=== PATIENT | female | born 1955 | race Caucasian/White ===

== ENCOUNTER 2019-03-18 14:22 | Emergency (ER) | payer MEDICARE, BC, SELFPAY ==
[2019-03-18 15:01] VITALS: BP 143/84; PULSE 60; RESP 17; TEMP 36.3; O2SAT 97; BMI 21.6
--- NOTE | 2019-03-18 15:05 | DI.RAD.S_ITS ---
PROCEDURE: XR WRIST RT MIN 3V INDICATIONS: Fall, R wrist pain TECHNIQUE: 3 views of the wrist were acquired. COMPARISON: [facility], CR, XR HAND RT MIN 3V, 03/18/2019, 15:28. FINDINGS: Bones: No acute fractures or dislocations. Chronic deformity of the distal ulna can be seen. The ulnar variance can be seen. There is a chronic appearing cystic lesion seen along the proximal triquetrum. No suspicious bony lesions. Degenerative changes are seen throughout, which are most prominent involving the radial aspect of the corpus callosum particularly involving the 1st carpometacarpal joint. Scaphoid view: Not done. Soft tissues: No suspicious soft tissue calcifications. IMPRESSION: No acute fractures are seen. No scaphoid view was done. If this patient has scaphoid tenderness, please send the patient back to radiology for a dedicated scaphoid view, which can be done at no additional charge. Chronic deformity of the distal ulna, with negative ulnar variance. There is a remote appearing cystic lesion involving the proximal triquetrum, which may related to the negative ulnar variance. Degenerative changes are seen throughout, which are most prominent involving radial aspect of the carpus. Dictated by: Flo De Luna M.D. on 03/18/2019 at 16:16 Approved by: Flo De Luna M.D. on 03/18/2019 at 16:19
--- NOTE | 2019-03-18 15:05 | DI.RAD.S_ITS ---
PROCEDURE: XR HAND RT MIN 3V INDICATIONS: Fall, R wrist pain TECHNIQUE: 3 views of the hand(s) acquired. COMPARISON: [facility], CR, XR WRIST RT MIN 3V, 03/18/2019, 15:31. FINDINGS: Bones: No acute fractures or dislocations. Chronic deformity is seen of the distal ulna. Note is made of negative ulnar variance. This can predispose to development of AVN of the lunate. However, no findings of AVN of the lunate are seen on these plain films. Carpal bones are normally aligned. No suspicious bony lesions. Degenerative changes are seen throughout, which are most prominent involving radial aspect of the carpus. Soft tissues: No suspicious soft tissue calcifications. IMPRESSION: No acute fractures are seen. Chronic deformity of the distal ulna noted, with negative ulnar variance. Degenerative changes are seen throughout, which are most prominent involving the radial aspect of the carpus. Dictated by: Flo De Luna M.D. on 03/18/2019 at 16:14 Approved by: Flo De Luna M.D. on 03/18/2019 at 16:16
--- NOTE | 2019-03-18 17:37 | ED_ITS ---
HPI - Extremity Injury (Upper) <ARNEL Slater - Last Filed: 03/18/19 20:59> General Chief Complaint: Extremity Injury, Upper Stated Complaint: FELL INTO WALL RT HAND/WRIST POSS BREAK Time Seen by Provider: 03/18/19 17:18 Source: patient Mode of arrival: Ambulatory History of Present Illness HPI narrative: 64yo female presents to the emergency department complaining of right wrist pain for the past week. She states she tripped over a kitten and fell with her hand against the wall. She states the pain is a occasional sharp shooting pain that is worse when she tries to lift heavy objects. Patient state s the wrist was originally swollen but has decreased over the past few weeks. She is worried about a fracture. She denies any other concerns such as head trauma, numbness, tingling, nausea, vomiting, diarrhea, chest pain, shortness of breath, or other concerns. Related Data Previous Rx's Medication Instructions Recorded fluticasone furoate-vilanterol 1 inhalation INHALATION DAILY #60 03/18/19 [Lenny Abreu] each metoprolol succinate 25 mg PO BID 30 Days #60 each 03/18/19 Review of Systems <ARNEL Slater - Last Filed: 03/18/19 20:59> Review of Systems Narrative: REVIEW OF SYSTEMS: GENERAL: Denies fever or chills. HENT: No head trauma. EYES: No double vision or vision loss. CARDIOVASCULAR: No chest pain or syncope. RESPIRATORY: No shortness of breath or cough. GASTROINTESTINAL: No nausea, vomiting, diarrhea, or constipation. MUSCULOSKELETAL: Complains of right wrist pain, see HPI. INTEGUMENTARY: No rash, lesions, or pruritus. NEURO: No numbness, tingling. PSYCH: No behavior or mood changes. Patient History <ARNEL Slater - Last Filed: 03/18/19 20:59> Medical History HTN (hypertension) (Acute) Substance Use Type: does not use Exam <ARNEL Slater - Last Filed: 03/18/19 20:59> Initial Vital Signs Initial Vital Signs: Vital Signs Temperature 97.4 F L 03/18/19 15:01 Pulse Rate 60 03/18/19 15:01 Respiratory Rate 17 03/18/19 15:01 Blood Pressure 143/84 H 03/18/19 15:01 Pulse Oximetry 97 03/18/19 15:01 PHYSICAL EXAMINATION: GENERAL: Well groomed, alert, and cooperative. Answers questions promptly and appropriately. Vital signs noted. HENT: Normocephalic, atraumatic. EYES: Symmetrical, sclera white, no periorbital swelling. CARDIOVASCULAR: Regular rhythm. RESPIRATORY: Normal respiratory rate, trachea midline, airway patent. No stridor, nasal flaring or accessory muscle use. MUSCULOSKELETAL: Right wrist tenderness to ulnar side of wrist with palpation, minor ecchymosis to this area. No snuffbox tenderness or scaphoid tenderness. No elbow tenderness. Normal gait and coordination. Equal tone and mass bilaterally. EXTREMITIES: CMS intact. No pedal edema. SKIN: Warm, dry, soft, appropriate color for ethnicity. No lesions, rashes, or wounds. NEURO: Alert and Oriented X 3. No sensory deficits. PSYCH: Appropriate affect and mood. <Ofelia Sanchez DO - Last Filed: 03/18/19 21:02> Initial Vital Signs Initial Vital Signs: Vital Signs Temperature 97.4 F L 03/18/19 15:01 Pulse Rate 60 03/18/19 15:01 Respiratory Rate 17 03/18/19 15:01 Blood Pressure 143/84 H 03/18/19 15:01 Pulse Oximetry 97 03/18/19 15:01 Course <ARNEL Slater - Last Filed: 03/18/19 20:59> Course Course Narrative: Patient was given a wrist brace emergency department. Patient states she is in between moving in as her refill of 2 medications. Patient had the prescription bottles with her. Orders Ordered: ED Orders 03/18/19 15:05 XR hand RT min 3V Stat XR wrist RT min 3V Stat Vital Signs Vital signs: Vital Signs - 8 hr 03/18/19 15:01 Temperature 97.4 F L Pulse Rate 60 Respiratory Rate 17 Blood Pressure 143/84 H Pulse Oximetry 97 <Ofelia Sanchez DO - Last Filed: 03/18/19 21:02> Orders Ordered: ED Orders 03/18/19 15:05 XR hand RT min 3V Stat XR wrist RT min 3V Stat Vital Signs Vital signs: Vital Signs - 8 hr 03/18/19 15:01 Temperature 97.4 F L Pulse Rate 60 Respiratory Rate 17 Blood Pressure 143/84 H Pulse Oximetry 97 MDM - Extremity Injury (Upper) <ARNEL Slater - Last Filed: 03/18/19 20:59> Medical Records Attestation: I reviewed the patient's medical records. Lab Data Attestation: I reviewed the patient's lab results. Imaging Data Extremity x-ray #1: Radiologist's Impression: [address] [id number] XRay Report Signed Patient: Lucy Barney LMR#: [id number] : 6Acct:[id number] Age/Sex: 64 / FDate of Service: 03/18/19 Loc: ED Accession Number: [id number] Procedure: XR wrist RT min 3V Ordering Provider: Ofelia Sanchez D.O. PROCEDURE: XR WRIST RT MIN 3V INDICATIONS: Fall, R wrist pain TECHNIQUE: 3 views of the wrist were acquired. COMPARISON: [facility], CR, XR HAND RT MIN 3V, 03/18/2019, 15:28. FINDINGS: Bones: No acute fractures or dislocations. Chronic deformity of the distal ulna can be seen. The ulnar variance can be seen. There is a chronic appearing cystic lesion seen along the proximal triquetrum. No suspicious bony lesions. Degenerative changes are seen throughout, which are most prominent involving the radial aspect of the corpus callosum particularly involving the 1st carpometacarpal joint. Scaphoid view: Not done. Soft tissues: No suspicious soft tissue calcifications. IMPRESSION: No acute fractures are seen. No scaphoid view was done. If this patient has scaphoid tenderness, please send the patient back to radiology for a dedicated scaphoid view, which can be done at no additional charge. Chronic deformity of the distal ulna, with negative ulnar variance. There is a remote appearing cystic lesion involving the proximal triquetrum, which may related to the negative ulnar variance. Degenerative changes are seen throughout, which are most prominent involving radial aspect of the carpus. Dictated by: Flo De Luna M.D. on 03/18/2019 at 16:16 Approved by: Flo De Luna M.D. on 03/18/2019 at 16:19 Extremity x-ray #2: Radiologist's Impression: [address] [address] XRay Report Signed Patient: Lucy Barney LMR#: [id number] : 6Acct:[id number] Age/Sex: 64 / FDate of Service: 03/18/19 Loc: ED Accession Number: [id number] Procedure: XR hand RT min 3V Ordering Provider: Ofelia Sanchez D.O. PROCEDURE: XR HAND RT MIN 3V INDICATIONS: Fall, R wrist pain TECHNIQUE: 3 views of the hand(s) acquired. COMPARISON: [facility], CR, XR WRIST RT MIN 3V, 03/18/2019, 15:31. FINDINGS: Bones: No acute fractures or dislocations. Chronic deformity is seen of the distal ulna. Note is made of negative ulnar variance. This can predispose to develop ment of AVN of the lunate. However, no findings of AVN of the lunate are seen on these plain films. Carpal bones are normally aligned. No suspicious bony lesions. Degenerative changes are seen throughout, which are most prominent involving radial aspect of the carpus. Soft tissues: No suspicious soft tissue calcifications. IMPRESSION: No acute fractures are seen. Chronic deformity of the distal ulna noted, with negative ulnar variance. Degenerative changes are seen throughout, which are most prominent involving the radial aspect of the carpus. Dictated by: Flo De Luna M.D. on 03/18/2019 at 16:14 Approved by: Flo De Luna M.D. on 03/18/2019 at 16:[address] [facility] Narrative Medical decision making narrative: 68-year-old female with history of hypertension presents for right wrist pain after falling on her wrist against a wall while tripping. Differential includes most likely strain due to mechanism of injury and lack of other concerning symptoms, contusion, and/or less likely fracture due to x-ray negative for any acute changes. Patient was given a wrist brace to help with pain. She was encouraged to follow up with her primary care provider in 1-2 weeks for further evaluation if symptoms continue. Return precautions given for new or worsening symptoms. Patient was asking for a refill for inhaler blood pressure medication, patient had the bottles with her. Medications were given Discharge Plan Departure Patient Disposition: Home Clinical Impression: Sprain and strain of wrist Discharge Date/Time: 03/18/19 17:43 Instructions: DI for Wrist Sprain Activity Restrictions/Additional Instructions: Thank you for entrusting me with your care today. As discussed, your x-rays are negative for any fractures. You were given a brace for your wrist. You can wear this during activity, do not wear this all the time as it may decrease your muscle strength. Follow up with a primary care provider in the next 1-2 weeks for further evaluation. You medications were refilled upon request. Return emergency department for any new or worsening symptoms such as chest pain, shortness of breath, dizziness, syncope, or other concerns. Prescriptions: New Breo Ellipta 100-25 mcg/dose blister with device 1 inhalation INHALATION DAILY Qty: 60 RF: 1 metoprolol succinate 25 mg capsule,sprinkle,ER 24hr 25 mg PO BID 30 Days Qty: 60 RF: 2
== END 2019-03-18 17:43 | disposition home or self-care (01) ==
PROVIDERS: Emergency Provider Nurse Practitioner
DX: S63.501A Unspecified sprain of right wrist, initial encounter (principal); S66.911A Strain of unspecified muscle, fascia and tendon at wrist and hand level, right hand, initial encounter; W01.198A Fall on same level from slipping, tripping and stumbling with subsequent striking against other object, initial encounter
CPT/HCPCS: 73110; 73130; 99283